=== PATIENT | female | born 1965 | race Caucasian/White ===

== ENCOUNTER → 2016-09-05 16:32 | Outpatient (CLI) | payer MEDICAID | END | disposition home or self-care (01) | LOC: D.MAMMO 13:45 | DX: Z12.31 Encounter for screening mammogram for malignant neoplasm of breast (principal) ==

== ENCOUNTER → 2016-11-12 14:07 | Outpatient (CLI) | payer MEDICAID | END | disposition home or self-care (01) | LOC: D.CT 14:07 | DX: Z68.32 Body mass index [BMI] 32.0-32.9, adult (principal); N28.1 Cyst of kidney, acquired ==

== ENCOUNTER → 2017-01-08 16:47 | Outpatient (CLI) | payer MEDICAID | END | disposition home or self-care (01) | LOC: D.MAMMO 10:30 | DX: R92.8 Other abnormal and inconclusive findings on diagnostic imaging of breast (principal) ==

== ENCOUNTER 2020-09-05 06:09 | Emergency (ER) | payer OTHER ==
[~2020-09-05] VITALS: Ht 175.3 cm; Wt 100.0 kg
[2020-09-05 06:11] VITALS: Ht 175.3 cm; Wt 100.0 kg
[2020-09-05] MEDS ORDERED: GABAPENTIN300 MG PO (06:12)
[2020-09-05] MEDS ORDERED: VOLTAREN75 MG PO (06:13)
[2020-09-05] MEDS ORDERED: ROPINIROLE HCL2 MG PO (06:13)
[2020-09-05] MEDS ORDERED: AMITRIPTYLINE100 MG PO (06:13)
[2020-09-05] MEDS ORDERED: SPIRIVA RESPIMAT4 G1 INH (06:14)
[2020-09-05] MEDS ORDERED: BACLOFEN20 M1 PO (06:14)
[2020-09-05] MEDS ORDERED: ZOLOFT50 MG PO (06:14)
[2020-09-05] MEDS ORDERED: PROAIR HFA8.5 G1 INH (06:14)
[2020-09-05] MEDS ORDERED: MOBIC7.5 MG (06:15)
[2020-09-05] MEDS ORDERED: OXYCONTIN10 MG PO (06:18)
[2020-09-05 06:31] LABS: BASOPHILS 0.2 % (0-2); EOSINOPHILS 0.7 % (0-7); HEMATOCRIT 45.6 % (36.0-48.0); HEMOGLOBIN 15.2 g/dL (12-16); IMMATURE GRANULOCYTES 0.4 % (0-5); LYMPHOCYTE ABS# 2.48 10x3/uL (1.18-3.74); LYMPHOCYTES 19.3 % (15-50); MCH 32.6 pg (26.0-34.0); MCHC 33.3 g/dL (31.0-37.0); MCV 97.9 fL (80.0-100.0); MEAN PLATELET VOLUME 11.4 fL (7.4-10.4); NEUTROPHILS 69.4 % (40-80); PLATELET COUNT 173 10x3/uL (130-400); RBC 4.66 10x6/uL (4.00-5.40); RDW 15.5 % (11.5-14.5); WBC 12.8 10x3/uL (4.8-10.8)
[2020-09-05 06:57] LABS: CALC OSMOLALITY 284 mosm/kg (275-300); CALCIUM 8.9 mg/dL (8.5-10.1); CARBON DIOXIDE 29.5 mmol/L (21.0-32.0); CHLORIDE - SERUM 106 mmol/L (98-107); CREATININE - SERUM 0.8 mg/dL (0.6-1.3); GLUCOSE 101 mg/dL (74-106); POTASSIUM - SERUM 4.1 mmol/L (3.5-5.1); SODIUM 142 mmol/L (136-145); UREA NITROGEN 18 mg/dL (7-18); eGFR NON AFRICAN AMERICAN 79 mL/min (90-120)
[2020-09-05 07:11] LABS: ALBUMIN 3.4 g/dL (3.4-5.0); ALKALINE PHOSPHATASE 139 U/L (30-120); ALT (SGPT) 29 U/L (10-68); BILIRUBIN - TOTAL 0.27 mg/dL (0.2-1.3); LIPASE 66 U/L (73-393); MAGNESIUM - SERUM 2.3 mg/dL (1.8-2.4); PRO BNP 88 pg/mL (0-125); PROTEIN - SERUM 6.8 g/dL (6.4-8.2); TROPONIN-I < 0.017 ng/mL (0.000-0.060)
[2020-09-05 08:59] LABS: BILIRUBIN NEGATIVE (NEGATIVE); KETONE NEGATIVE (NEGATIVE); NITRITE NEGATIVE (NEGATIVE); UROBILINOGEN NORMAL mg/dL (< 2); WHITE CELLS - URINE OCC HPF (0-4)
[2020-09-05 09:00] LABS: BACTERIA FEW HPF (NONE SEEN); SQUAMOUS EPITHELIAL OCC HPF (0-4)
[2020-09-05 10:23] VITALS: BP 162/79
== END 2020-09-05 10:31 | disposition home or self-care (01) ==
LOC: D.ER 06:09
PROVIDERS: Emergency Medicine; Family Medicine
DX: R07.9 Chest pain, unspecified (principal); T14.8XXA Other injury of unspecified body region, initial encounter; W19.XXXA Unspecified fall, initial encounter; Y93.9 Activity, unspecified; Y92.9 Unspecified place or not applicable

== ENCOUNTER 2020-10-24 17:38 | Emergency (ER) | payer OTHER ==
[~2020-10-24] VITALS: Ht 175.3 cm; Wt 100.0 kg
[~2020-10-24 17:38] MED LIST: AMITRIPTYLINE100 MG PO; BACLOFEN20 M1 PO; GABAPENTIN300 MG PO; MOBIC7.5 MG; OXYCONTIN10 MG PO; PROAIR HFA8.5 G1 INH; ROPINIROLE HCL2 MG PO; SPIRIVA RESPIMAT4 G1 INH; VOLTAREN75 MG PO; ZOLOFT50 MG PO
[2020-10-24 17:43] VITALS: Ht 175.3 cm; Wt 100.0 kg
[2020-10-24] MEDS ORDERED: CEPHALEXIN500 M1 PO (18:00)
[2020-10-24 18:09] VITALS: BP 135/84
== END 2020-10-24 18:09 | disposition home or self-care (01) ==
LOC: D.ER 17:38
DX: L60.0 Ingrowing nail (principal); I10 Essential (primary) hypertension; G62.9 Polyneuropathy, unspecified; Z72.0 Tobacco use